=== PATIENT | male | born 1970 | race Caucasian/White ===

== ENCOUNTER 2019-07-30 15:50 | Emergency (ER) | payer MEDICAID ==
--- NOTE | 2019-07-30 16:41 | EDM.PDOC ---
<OfficerChong - Last Filed: 07/30/19 16:38> ED HPI GENERAL MEDICAL PROBLEM - General Chief Complaint: Respiratory Problem Stated Complaint: MEDICAL Time Seen by Provider: 07/30/19 16:23 Source of Information: Reports: Patient, Old Records, RN Notes Reviewed History Limitations: Reports: No Limitations - History of Present Illness INITIAL COMMENTS - FREE TEXT/NARRATIVE: 48-year-old gentleman presents emergency department today complaint of shortness of breath, he arrives by EMS services, he was evaluated in clinic by primary care in [place] advised to report to the emergency department. EMS services were called transported here. He did have chest x-ray EKG and lab work done unfortunately lab work has not been posted EKG demonstrates sinus tachycardia chest x-ray per report from radiology does show large pleural effusion on the right side recommend CT scan, per review of [facility] records - Related Data Allergies Allergy/AdvReac Type Severity Reaction Status Date / Time Penicillins Allergy Anaphylactic Verified 07/30/19 15:57 Shock Home Meds: Home Meds Acetaminophen [Tylenol] 650 mg PO Q6H PRN 07/30/19 [History] Naproxen Sodium [Aleve] 220 mg PO Q8H PRN 07/30/19 [History] diphenhydrAMINE [Benadryl] 25 mg PO Q6H PRN 07/30/19 [History] Past Medical History HEENT History: Reports: Impaired Vision Musculoskeletal History: Reports: Other (See Below) Other Musculoskeletal History: torn acl in left knee Social & Family History - Tobacco Use Smoking Status *Q: Never Smoker - Caffeine Use Caffeine Use: Reports: Tea - Recreational Drug Use Recreational Drug Use: No ED ROS GENERAL - Review of Systems Review Of Systems: See Below Constitutional: Reports: No Symptoms HEENT: Reports: No Symptoms Respiratory: Reports: Shortness of Breath, Cough, Sputum Cardiovascular: Reports: Dyspnea on Exertion GI/Abdominal: Reports: No Symptoms : Reports: No Symptoms Musculoskeletal: Reports: No Symptoms ED EXAM, GENERAL - Physical Exam Exam: See Below Exam Limited By: No Limitations General Appearance: Alert, Anxious Respiratory/Chest: No Respiratory Distress, Normal Breath Sounds, Other (Left chest no appreciation all of aeration on the right side) Cardiovascular: Regular Rate, Rhythm, No Murmur GI/Abdominal: Soft, Non-Tender Course - Vital Signs Last Recorded V/S: Last Vital Signs Temp 98.6 F 07/30/19 16:02 Pulse 101 H 07/30/19 22:05 Resp 20 07/30/19 22:05 BP 114/81 07/30/19 22:05 Pulse Ox 94 L 07/30/19 22:05 - Orders/Labs/Meds Orders: Active Orders 24 hr Category Date Time Status Vital Signs [RC] Q1H Care 07/30/19 16:31 Active CULTURE BLOOD [BC] Urgent Lab 07/30/19 16:35 Received CULTURE BLOOD [BC] Urgent Lab 07/30/19 16:47 Received Blood Culture x2 Reflex Set [OM.PC] Urgent Oth 07/30/19 16:31 Ordered Labs: Laboratory Tests 07/30/19 07/30/19 07/30/19 Range/Units 16:35 16:35 16:35 WBC 11.6 H (4.5-11.0) K/uL RBC 4.32 (4.30-5.90) M/uL Hgb 10.9 L (12.0-15.0) g/dL Hct 34.3 L (40.0-54.0) % MCV 79 L (80-98) fL MCH 25 L (27-31) pg MCHC 32 (32-36) % Plt Count 625 H (150-400) K/uL Neut % (Auto) 82 H (36-66) % Lymph % (Auto) 10 L (24-44) % [place] % (Auto) 8 H (2-6) % Eos % (Auto) 0 L (2-4) % Baso % (Auto) 0 (0-1) % Sodium 130 L (140-148) mmol/L Potassium 3.3 L (3.6-5.2) mmol/L Chloride 95 L (100-108) mmol/L Carbon Dioxide 23 (21-32) mmol/L Anion Gap 15.3 H (5.0-14.0) mmol/L BUN 7 (7-18) mg/dL Creatinine 0.9 (0.8-1.3) mg/dL Est Cr Clr Drug Dosing 105.75 mL/min Estimated GFR (MDRD) > 60 (>60) Glucose 102 (74-106) mg/dL Lactic Acid 1.7 (0.4-2.0) mmol/L Calcium 8.2 L (8.5-10.1) mg/dL Total Bilirubin 0.9 (0.2-1.0) mg/dL AST 79 H (15-37) U/L ALT 84 H (12-78) U/L Alkaline Phosphatase 123 H (46-116) U/L C-Reactive Protein 18.75 H (0.0-0.3) mg/dL Total Protein 7.9 (6.4-8.2) g/dL Albumin 1.9 L (3.4-5.0) g/dL Globulin 6.0 H (2.3-3.5) g/dL Albumin/Globulin Ratio 0.3 L (1.2-2.2) Procalcitonin ng/mL 07/30/19 Range/Units 16:35 WBC (4.5-11.0) K/uL RBC (4.30-5.90) M/uL Hgb (12.0-15.0) g/dL Hct (40.0-54.0) % MCV (80-98) fL MCH (27-31) pg MCHC (32-36) % Plt Count (150-400) K/uL Neut % (Auto) (36-66) % Lymph % (Auto) (24-44) % [place] % (Auto) (2-6) % Eos % (Auto) (2-4) % Baso % (Auto) (0-1) % Sodium (140-148) mmol/L Potassium (3.6-5.2) mmol/L Chloride (100-108) mmol/L Carbon Dioxide (21-32) mmol/L Anion Gap (5.0-14.0) mmol/L BUN (7-18) mg/dL Creatinine (0.8-1.3) mg/dL Est Cr Clr Drug Dosing mL/min Estimated GFR (MDRD) (>60) Glucose (74-106) mg/dL Lactic Acid (0.4-2.0) mmol/L Calcium (8.5-10.1) mg/dL Total Bilirubin (0.2-1.0) mg/dL AST (15-37) U/L ALT (12-78) U/L Alkaline Phosphatase (46-116) U/L C-Reactive Protein (0.0-0.3) mg/dL Total Protein (6.4-8.2) g/dL Albumin (3.4-5.0) g/dL Globulin (2.3-3.5) g/dL Albumin/Globulin Ratio (1.2-2.2) Procalcitonin 0.23 ng/mL Meds: Medications Discontinued Medications Generic Name Dose Route Start Last Admin Trade Name Freq PRN Reason Stop Dose Admin Lactated Ringer's 1,000 mls @ 999 mls/hr 07/30/19 16:45 07/30/19 16:54 Ringers, Lactated IV 999 mls/hr ASDIRECTED TL Administration Sodium Chloride 75 mls @ 0 mls/hr 07/30/19 17:30 07/30/19 17:48 Normal Saline IV 3 mls/hr ASDIRECTED TL Administration KVO Ceftriaxone Sodium 1 gm/ 50 mls @ 100 mls/hr 07/30/19 18:55 07/30/19 19:15 Sodium Chloride IV 07/30/19 19:24 100 mls/hr ONETIME ONE Administration Sodium Chloride 100 mls @ 0 mls/hr 07/30/19 19:15 07/30/19 19:45 Normal Saline IV 4 mls/hr ASDIRECTED TL Administration KVO Iopamidol 100 ml 07/30/19 17:30 07/30/19 17:47 Isovue-300 (61%) IV 100 ml . DIRECTED TL Administration Iopamidol 100 ml 07/30/19 19:15 07/30/19 19:45 Isovue-370 (76%) IV 100 ml . DIRECTED TL Administration Sodium Chloride 10 ml 07/30/19 17:26 07/30/19 17:47 Saline Flush FLUSH 07/30/19 17:27 10 ml ONETIME ONE Administration Sodium Chloride 10 ml 07/30/19 19:03 07/30/19 19:45 Saline Flush FLUSH 07/30/19 19:04 10 ml ONETIME ONE Administration Departure - Departure Disposition: DC/Tfer to Other 70 Clinical Impression: Empyema of lung Pulmonary embolism Qualifiers: Pulmonary embolism type: multiple subsegmental (without acute cor pulmonale) Qualified Code(s): I26.94 - Multiple subsegmental pulmonary emboli without acute cor pulmonale - Discharge Information Referrals: PCP,None [Primary Care Provider] - Forms: ED Department Discharge Care Plan Goals: Patient is to be transferred by EMS to [facility] to be admitted to the hospitalist service for right empyema and pulmonary emboli. Accepted by Dr. Dooley at 8 PM. <Luis Albrecht - Last Filed: 07/30/19 23:17> Course - Re-Assessments/Exams Free Text/Narrative Re-Assessment/Exam: 07/30/19 20:17 Care turned over from Officer pending a CT of the chest with IV contrast. This does show left-sided PE. This was discussed with surgery, and it was recommended he be sent to [place] for higher level of care. Dr. Dooley, hospitalist for [place] [facility] kindly accepted the patient for admission. He'll be sent by EMS. Departure - Departure Time of Disposition: 21:42
[2019-07-30] MEDS ORDERED: Lactated Ringers 1,000 ML IV SCH (16:45)
[2019-07-30] MEDS ORDERED: Sodium Chloride 0.9% 10 ML Syringe FLUSH ONE ×2 (17:26→19:03)
[2019-07-30] MEDS ORDERED: Iopamidol 612 MG/ML 100 ML Bottle IV SCH (17:30)
[2019-07-30] MEDS ORDERED: Sodium Chloride 0.9% 75 ML IV SCH (17:30)
--- NOTE | 2019-07-30 18:42 | CRLCT ---
INDICATION: Pleural effusion, shortness of breath TECHNIQUE: CT chest was acquired with 100 cc Isovue-300 IV contrast. COMPARISON: None FINDINGS: Cardiovascular structures: Heart size is normal. Thoracic aorta and main pulmonary artery are normal in caliber. Although not performed as a pulmonary embolus protocol, there are findings concerning for pulmonary emboli within subsegmental branches of the left lower lobe pulmonary artery, seen on image 44 series 2. Mediastinum and federico: Right paratracheal adenopathy measures up to 1.7 cm. Lungs: The left lung is clear. Pleura and pericardium: Split pleura sign with large pleural effusion containing bubbles of air. Compressive atelectasis in the right lung. The large effusion causes mass effect on the right heart and splays the right main pulmonary artery and right mainstem bronchus. Chest wall and axilla: No mass or adenopathy. Upper abdomen: Hepatic steatosis. Bones: Calcification of the anterior longitudinal ligament of the thoracic spine. IMPRESSION: Large right empyema causing mass effect on the right heart. Right paratracheal adenopathy is likely reactive. Atelectasis in the right lung. Infection cannot be excluded. Questionable pulmonary emboli in the left lower lobe pulmonary branches. Recommend CTA chest for further evaluation. Findings discussed with Officer at 6:38 p.m. on July 30, 2019. Please note that all CT scans at this facility use dose modulation, iterative reconstruction, and/or weight-based dosing when appropriate to reduce radiation dose to as low as reasonably achievable. Dictated by Jacki Martinez MD @ Jul 30 2019 6:30PM Signed by Dr. Jacki Martinez @ Jul 30 2019 6:42PM
[2019-07-30] MEDS ORDERED: cefTRIAXone 1 GM in Sodium Chloride 0.9% 50 ML IV ONE (18:55)
[2019-07-30] MEDS ORDERED: Sodium Chloride 0.9% 100 ML IV SCH (19:15)
[2019-07-30] MEDS ORDERED: Iopamidol 755 Mg/ML 100 ML Bottle IV SCH (19:15)
--- NOTE | 2019-07-30 19:55 | CRLCT ---
INDICATION: Empyema, questionable pulmonary embolism on standard chest CT TECHNIQUE: CT chest pulmonary PE protocol acquired with 100 cc Isovue 370 IV contrast. COMPARISON: Chest CT performed earlier today FINDINGS: Cardiovascular structures: There are acute pulmonary emboli within subsegmental branches of the left lower lobe pulmonary artery. Heart size is normal. There is mild bowing of the interventricular septum. No sign of aneurysm in the thoracic aorta. Mediastinum and federico: Right paratracheal adenopathy, unchanged. Lungs: Compressive atelectasis in the right lung. Pleura and pericardium: Larger right empyema causes mass effect on the right heart, unchanged. Chest wall and axilla: No mass or adenopathy. Upper abdomen: Unremarkable. Bones: No significant findings. IMPRESSION: Acute pulmonary emboli within subsegmental branches of the left lower lobe pulmonary artery. Mild bowing of the interventricular septum suggesting right heart strain. Large right empyema causing mass effect on the right heart. Associated right paratracheal adenopathy. Compressive atelectasis in the right lung. Underlying infection cannot be excluded. Findings discussed with Dr. Albrecht at 7:55 p.m. on July 30, 2019. Please note that all CT scans at this facility use dose modulation, iterative reconstruction, and/or weight-based dosing when appropriate to reduce radiation dose to as low as reasonably achievable. Dictated by Jacki Martinez MD @ Jul 30 2019 7:54PM Signed by Dr. Jacki Martinez @ Jul 30 2019 7:54PM
== END 2019-07-30 22:19 | disposition other institution (70) ==
LOC: JP.ED 15:50
DX: J86.9 Pyothorax without fistula (principal); I26.94 Multiple subsegmental thrombotic pulmonary emboli without acute cor pulmonale; Z88.0 Allergy status to penicillin
CPT/HCPCS: 36415; 71260; 71275; 80053; 83605; 84145; 85025; 86140; 87040; 96361; 96365; 99285; J0696; J7030; J7050; J7120; Q9967